=== PATIENT | male | born 1940 | race Caucasian/White ===

== ENCOUNTER 2017-09-29 00:41 | Inpatient (IN) | payer MEDICARE ==
[2017-09-28 15:30] LABS: INR 1.13
[~2017-09-29] VITALS: Ht 175.3 cm; Wt 63.5 kg
[2017-09-29] VITALS (12 sets, daily range): BP systolic 35–141; BP diastolic 29–72
[~2017-09-29 00:41] MED LIST: ALLO100T70 PO; AMLO-96 PO; ASPI-1471 PO; ATOR20TA22 PO; ENAL-18 PO; ERGO500037 PO; FAMO-67 PO; GLIP-154 PO; METO50TA19 PO; OMEG-23 PO; QUET50TA PO; TAMS0.4C70 PO
[2017-09-29] MEDS ORDERED: PREGABALIN 75 MG CAPSULE PO ONE (10:00)
[2017-09-29] MEDS ORDERED: ceFAZolin(*) 2GM/D5W 50ML 50 ML IVPB ONE (10:00)
[2017-09-29] MEDS ORDERED: NORMOSOL R SOLN(*) 1000 ML BAG 1,000 ML IV PRN (10:00)
[2017-09-29] MEDS ORDERED: MIDAZOLAM 2 MG/2 ML VIAL IVP PRN (10:00)
[2017-09-29] MEDS ORDERED: BACITRACIN 50000 UNIT/VIAL 100,000 UNIT in NS 0.9% 3000 ML IRRIGATION BAG 3,000 ML IR ONE (10:00)
[2017-09-29] MEDS ORDERED: ACETAMINOPHEN 500 MG TAB PO ONE (10:00)
[2017-09-29] MEDS ORDERED: CELECOXIB 200 MG CAP PO ONE (10:00)
[2017-09-29] MEDS ORDERED: LIDOCAINE/SOD BICARB 8.4% SYR ID ONE (10:00)
[2017-09-29] MEDS ORDERED: ONDANSETRON 4 MG/2 ML VIAL ONE (10:08)
[2017-09-29] MEDS ORDERED: PROPOFOL EMUL(*) 10MG/ML 20 ML 20 ML ONE (10:08)
[2017-09-29] MEDS ORDERED: DEXAMETHASONE SOD 4 MG/ML VIAL ONE (10:08)
[2017-09-29] MEDS ORDERED: LIDOCAINE MPF 1% 5 ML VIAL ONE (10:08)
[2017-09-29] MEDS ORDERED: fentaNYL CITR 250 MCG/5 ML AMP ONE (10:13)
[2017-09-29] MEDS ORDERED: ROCURONIUM BROM 10 MG/ML 10 ML ONE (10:24)
[2017-09-29] MEDS ORDERED: ROPIVACAINE 0.2% 20 ML VIAL ONE (11:02)
[2017-09-29] MEDS ORDERED: LIDO/EPI 2% MPF 1:200,000 20ML ONE (11:03)
[2017-09-29] MEDS ORDERED: cloNIDine EPIDUR INJ 100MCG/ML 40 MCG, ROPIVACAINE 0.5% 20 ML VIAL 25 ML, EPINEPHrine H... INJ ONE (12:15)
[2017-09-29] MEDS ORDERED: VANCOMYCIN(*) 1 GM VIAL 1 GM in NS(*) 0.9% 250 ML BAG 250 ML IVPB ONE (12:15)
[2017-09-29] MEDS ORDERED: ePHEDrine 25 MG/5 ML DISP.SYR IVP ONE (12:47)
[2017-09-29] MEDS ORDERED: PHENYLEPHRINE/NS/PF 0.4MG/10ML ONE (12:52)
[2017-09-29] MEDS ORDERED: SUGAMMADEX SOD 200 MG/2 ML SDV ONE (14:28)
[2017-09-29] MEDS ORDERED: diphenhydrAMINE 50 MG/ML VIAL IVP PRN (15:15)
[2017-09-29] MEDS ORDERED: diphenhydrAMINE 25 MG CAP PO PRN (15:15)
[2017-09-29] MEDS ORDERED: LR 1000 ML BAG 1000 ML IV PRN (15:15)
[2017-09-29] MEDS ORDERED: ZOLPIDEM TARTRATE 5 MG TAB PO PRN (15:15)
[2017-09-29] MEDS ORDERED: BISACODYL 10 MG SUPP PR PRN (15:15)
[2017-09-29] MEDS ORDERED: ONDANSETRON 4 MG/2 ML VIAL IVP PRN (15:15)
[2017-09-29] MEDS ORDERED: MAGNESIUM CITRATE 300 ML BTL PO PRN (15:15)
[2017-09-29] MEDS ORDERED: HYDROmorphone HCL 2 MG/ML SDV IVP PRN (15:15)
[2017-09-29] MEDS ORDERED: MAGNESIUM HYDROXIDE* 30ML UDCP PO PRN (15:15)
[2017-09-29] MEDS ORDERED: PROMETHAZINE 25 MG/ML 1 ML AMP IVP PRN (15:15)
[2017-09-29] MEDS ORDERED: FLUSH 10 ML SYR IVP PRN (15:15)
--- NOTE | 2017-09-29 15:39 | RADIOLOGY IMAGING REPORT ---
FACILITY: [facility] PATIENT NAME: Guillermo Bauer : 1940 MR: [id number] V: [id number] EXAM DATE: ORDERING PHYSICIAN: CM DIAZ TECHNOLOGIST: Location: [facility] Patient: Guillermo Bauer : 1940 Visit/Account:[id number] Date of Sevice: 09/29/2017 Exam type: SHOULDER 1 VIEW LEFT History: POST OP L TSA Comparison: None. Findings: The left shoulder arthroplasty that appears in good anatomic alignment on this single AP view. Insta ntly noted are moderate degenerative changes of the left AC joint and sternotomy sutures IMPRESSION: 1. Left shoulder arthroplasty appears in good anatomic alignment on this single AP view Report Dictated By: Mary Mann MD at 09/29/2017 3:33 PM Report E-Signed By: Mary Mann MD at 09/29/2017 3:35 PM WSN:[email or web address]
--- NOTE | 2017-09-29 16:48 | OPERATIVE REPORT 1 ---
EVENT DATE: September 29, 2017 SURGEON: Spencer Walker MD ANESTHESIOLOGIST: Guillermo Tadeo MD ANESTHESIA: General LMA anesthesia. FOOD PRODUCTION MANAGER: MIKE Gonzalez PREOPERATIVE DIAGNOSIS Left shoulder osteoarthritis. POSTOPERATIVE DIAGNOSIS Left shoulder osteoarthritis. PROCEDURE PERFORMED Left total shoulder arthroplasty. FINDINGS The patient had a significant amount of arthritic changes associated with his shoulder, but was amenable for total shoulder replacement. ESTIMATED BLOOD LOSS About 200 mL. DRAINS None. COMPLICATIONS None. TOURNIQUET TIME Not applicable. IMPLANTS USED [employer] Unite system size 52 [place] Peg Glenoid with an 8 stem, an 8 proximal body, and a 52 x 18 standard head. SPECIMENS None. 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 He has then has subsequently developed arthritis in the left shoulder, and so therefore, he wanted to go ahead with a total shoulder arthroplasty in the near future on that. I talked to him about the implications of this given the fact that he has no legs, and he uses his arms for ambulation and transfer, how it may wear out the total shoulder. Also, we talked extensively about his infections associated with his legs and how this can result in catastrophic problems associated with his shoulder also. He said he understood all these and understood that it may not give him complete relief and that he may need further surgeries associated with this, and after informed consent was obtained, we got him set up to do that today, September 29, 2017. DESCRIPTION OF PROCEDURE As the patient was brought in the operating room, he and the procedure were both verified. He was placed supine on the operating table and induced and intubated by Anesthesia. He was then put in a beach chair position with the left arm out over the edge. Then, the left arm was prepped and draped in the usual fashion. A timeout was observed verifying the correct patient and procedure. The standard incision was made over the anterior aspect of the shoulder after the incision was insufflated with 2% lidocaine with epinephrine. I then took the incision through the skin and subcutaneous tissue and then was able to go down to the deltopectoral interval. I was then able to split the deltopectoral interval. Unfortunately, during dislocation of the shoulder, the cephalic vein did rupture and so therefore needed to be tied off. I then was able to get down to the clavipectoral fascia, and then I was able to identify the biceps tendon. I performed a biceps tenodesis in this area with a tag stitch. This was then followed by peel back of the subscapularis in order to make it amenable to repair later on and then get into the shoulder joint itself, which I tagged for later repair. Once in the shoulder joint, I was then able to drill a vargas hole into the superior aspect of the humeral head after dislocating the shoulder. I then was able to broach and ream down into the central canal. We put the 6 mm reamer in , and it had a good fit, and so therefore, an 8 was chosen. I then utilized the cutting guide from the [employer] system in order cut the humeral head. After cutting the humeral head, I was then able to remove all the osteophytes 360 degrees around the humeral head itself and then turned attention to the glenoid. Once on the glenoid, I was able to put a retractor posteriorly and anteriorly, removed the labrum, and then what was left of the biceps anchor. This was then followed by drilling a central pilot submersible hole and then reaming the glenoid to a 52 mm socket size. I then drilled the subsequent cementation holes and the rotational holes and then put in the trial and then cemented in the final 52 [place] Peg Glenoid. Once the cement had hardened, I then turned attention back to the humerus where I was able to take the #8 Brosteotome, followed by bone grafting and then placement of an 8 broach into the humerus itself. I then trialed the 52 x 18 head. This had excellent fit, and so therefore this was the final prosthesis chosen, and it was assembled on the back table. I then removed the prosthesis, impacted bone grafting in the canal. This was then followed by passage of six sutures through the anterior aspect of what was left of the humeral head in order to repair the subscapularis. I then put in the final prosthesis, relocated it, put it through a range of motion. There were no signs of problems or issues. It had good tension associated with it, and so therefore the subscapularis was closed using those six sutures and then one more through the interval. I then irrigated with copious amounts of saline which I had throughout the case using a pulsatile lavage and then closed the deltopectoral interval with an 0 Stratafix, then followed by 2-0 Stratafix in the subcutaneous tissue, and a subcuticular running 4-0 Monocryl. This was then dressed with Steri-Strips, gauze 4 x 4's, and a soft dressing. The patient was put in a regular sling and then awakened, extubated, and transferred to PACU in stable condition. SLY
--- NOTE | 2017-09-29 17:11 | Hospitalist Consultation ---
History of Present Illness Requesting Physician Dr. Walker Reason for Consult Medical Management Chief Complaint s/p left shoulder replacement History of Present Illness He was admitted s/p left shoulder replacement. It is reported the surgery went well and without complication. 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 History Problems: (1) CAD (coronary artery disease) Status: Chronic (2) Depression Status: Chronic (3) Hyperlipidemia Status: Chronic (4) Hypertension Status: Chronic (5) JONAH (obstructive sleep apnea) Status: Chronic (6) Type 2 diabetes mellitus Status: Chronic Home Meds Reported Medications Ergocalciferol (Vitamin D2) (VITAMIN D2) 50,000 Unit Capsule, 69866 UNIT PO 2XW , CAPSULE PT TAKE ONE ON THURSDAY AND ONE ON Thursday09/22/17 Aspirin (ASPIR 81) 81 Mg Tablet.dr, 81 MG PO QDAY, TAB 09/22/17 [place]-3 Fatty Acids/Fish Oil (FISH OIL 1,000 MG SOFTGEL) 1 Each Capsule, 1 EACH PO BID, CAPSULE TAKE 3 CAPS IN THE MORNING AND 2 CAPS AT NIGHT 09/22/17 Quetiapine Fumarate (QUETIAPINE FUMARATE) 50 Mg Tablet, 50 MG PO HS 09/22/17 Famotidine (FAMOTIDINE) 20 Mg Tablet, 20 MG PO BID, TAB TAKE ONE TAB TWICE A DAY 30 MINS BEFORE A MEAL. 09/22/17 Amlodipine Besylate (AMLODIPINE BESYLATE) 5 Mg Tablet, 1 TAB PO QDAY, TAB 09/22/17 Metoprolol Succinate (METOPROLOL SUCCINATE) 50 Mg Tab.er.24h, 1 TAB PO BID, TAB 09/22/17 Allopurinol (ALLOPURINOL) 100 Mg Tablet, 100 MG PO DAILY, #10 TAB 09/22/17 Glipizide (GLIPIZIDE) 10 Mg Tablet, 20 MG PO BIDBS 09/22/17 Enalapril Maleate (ENALAPRIL MALEATE) 10 Mg Tablet, 10 MG PO QDAY 09/22/17 Atorvastatin Calcium (LIPITOR) 20 Mg Tablet, 1 TAB PO HS, TAB 09/22/17 Tamsulosin Hcl (TAMSULOSIN HCL) 0.4 Mg Cap.er.24h, 0.4 MG PO DAILY, CAP 09/22/17 Allergies: Coded Allergies: No Known Drug Allergies (Unverified , 09/22/17) Patient History: FHx: cancer FATHER MOTHER Hx Smoking: No Exposure to Second Hand Smoke?: No Hx Alcohol Use: No Hx Substance Use Disorder: No Review of Systems All Systems Reviewed/Normal: Yes, Except as Noted Exam Vital Signs Vital Signs Date Time Temp Pulse Resp B/P (MAP) Pulse Ox O2 Delivery O2 Flow Rate FiO2 09/29/17 15:50 90 14 91 09/29/17 10:45 97.6 141/71 (94) Room Air General Appearance: Alert, Awake, No Acute Distress, Afebrile Neuro: No Gross deficits Cardiovascular: Regular Rate and Rhythm Respiratory: No Respiratory Distress, Clear to Auscultation Psych: Alert & Oriented X3, Appropriate Mood & Affect Medical Decision Making Data Points Result Diagram: 09/29/17 7302 Assessment and Plan Problems: (1) Status post replacement of left shoulder joint Status: Acute Assessment & Plan: Followed by Dr. Walker. He will be placed on Vancomycin 1 gm daily secondary to chronic kidney disease. He will also be placed on Aspirin for DVT prophylaxis. (2) Type 2 diabetes mellitus Status: Chronic Assessment & Plan: He is on chronic treatment with Glipizide. He will be placed on SSI #2 and ADA diet. (3) Hypertension Status: Chronic Assessment & Plan: He is on chronic treatment with Metoprolol, Amlodipine and Enalapril. These medications have been restarted with hold parameters. (4) Hyperlipidemia Status: Chronic Assessment & Plan: He is on chronic treatment with Atorvastatin. (5) JONAH (obstructive sleep apnea) Status: Chronic Assessment & Plan: He did bring his CPAP machine to use [employer]. (6) CAD (coronary artery disease) Status: Chronic Assessment & Plan: He has a history of [place] with coronary bypass. (7) Depression Status: Chronic Assessment & Plan: He is on chronic treatment with quetiapine. (8) CKD (chronic kidney disease) Status: Chronic Assessment & Plan: Creatinine prior to surgery was 1.8. Today 2.1. Renally dosed Vancomycin. Venous Thromboembolism Antithrombotics Is Pt On Any Antithrombotics?: No Problem Qualifiers (1) CKD (chronic kidney disease): Chronic kidney disease stage: stage 3 (moderate) Qualified Codes: N18.3 - Chronic kidney disease, stage 3 (moderate) GABBY DUNHAM HOME HEALTH CARE PHYSICIAN Sep 29, 2017 17:11
[2017-09-29] MEDS ORDERED: BENZOCAINE/MENTHOL 1 EACH LOZG PO PRN (18:55)
[2017-09-29] MEDS ORDERED: VANCOMYCIN(*) 1 GM VIAL 1 GM in NS(*) 0.9% 250 ML ADDVAN BAG 250 ML IVPB SCH (20:00)
[2017-09-29] MEDS: INSULIN HUM LISPRO 100 UN/ML 3 ML VIAL SUBQ PRN (20:30)
[2017-09-29] MEDS: FAMOTIDINE 20 MG TAB PO SCH (20:56)
[2017-09-29] MEDS: ASPIRIN 325 MG TAB PO SCH (20:56)
[2017-09-29] MEDS: ATORVASTATIN 40 MG TAB PO SCH (20:56)
[2017-09-29] MEDS: QUEtiapine FUM 25 MG TAB PO SCH (20:56)
[2017-09-29] MEDS: METOPROLOL SUCC XL 50 MG TABCR 50 MG TAB.ER.24H PO SCH (20:57)
[2017-09-30] VITALS (9 sets, daily range): BP systolic 98–129; BP diastolic 53–63
[2017-09-30] MEDS: FAMOTIDINE 20 MG TAB PO SCH ×2 (07:13→16:34)
[2017-09-30] MEDS: glipiZIDE 5 MG TAB PO SCH ×2 (07:28→16:34)
[2017-09-30] MEDS: TAMSULOSIN HCL 0.4 MG CAP PO SCH (08:16)
[2017-09-30] MEDS: ALLOPURINOL 100 MG TAB PO SCH (08:16)
[2017-09-30] MEDS: amLODIPine BESYL(*) 5 MG TAB PO SCH (08:16)
[2017-09-30] MEDS: NS(*) 0.9% 1000 ML BAG 1,000 ML IV PRN (08:16)
[2017-09-30] MEDS: METOPROLOL SUCC XL 50 MG TABCR 50 MG TAB.ER.24H PO SCH ×2 (08:17→20:57)
[2017-09-30] MEDS: ENALAPRIL MALEATE 10 MG TAB PO SCH (08:17)
--- NOTE | 2017-09-30 09:25 | Hospitalist Progress Note ---
Subjective Progress Notes Subjective He has no concerns this morning. He had no acute events overnight. Patient Complains of: Cardiovascular: No: Chest Pain Respiratory: No: Shortness of Breath Physical Exam Vital Signs Date Time Temp Pulse Resp B/P (MAP) Pulse Ox O2 Delivery O2 Flow Rate FiO2 09/30/17 07:31 91 Nasal Cannula 3.0 09/30/17 07:22 97.6 85 16 125/59 (81) Intake and Output 10/01/17 07:00 Intake Total 480 ml Balance 480 ml Intake Oral 480 ml General Appearance: Alert, Awake, No Acute Distress, Afebrile Neuro: No Gross deficits Cardiovascular: Regular Rate and Rhythm Respiratory: No Respiratory Distress, Clear to Auscultation Psych: Alert & Oriented X3, Appropriate Mood & Affect Result Diagram: 09/30/17 0537 09/29/17 1618 Assessment and Plan Problems: (1) Status post replacement of left shoulder joint Status: Acute Assessment & Plan: Followed by Dr. Walker. He will be placed on Vancomycin 1 gm daily secondary to chronic kidney disease. He will also be placed on Aspirin for DVT prophylaxis. (2) Type 2 diabetes mellitus Status: Chronic Assessment & Plan: He is on chronic treatment with Glipizide. He will be placed on SSI #2 and ADA diet. (3) Hypertension Status: Chronic Assessment & Plan: He is on chronic treatment with Metoprolol, Amlodipine and Enalapril. These medications have been restarted with hold parameters. (4) Hyperlipidemia Status: Chronic Assessment & Plan: He is on chronic treatment with Atorvastatin. (5) JONAH (obstructive sleep apnea) Status: Chronic Assessment & Plan: He did bring his CPAP machine to use [employer]. (6) CAD (coronary artery disease) Status: Chronic Assessment & Plan: He has a history of [place] with coronary bypass. (7) Depression Status: Chronic Assessment & Plan: He is on chronic treatment with quetiapine. (8) CKD (chronic kidney disease) Status: Chronic Assessment & Plan: Creatinine prior to surgery was 1.8. Today 2.1. Renally dosed Vancomycin. Exam Sepsis Risk: No Definite Risk Problem Qualifiers (1) CKD (chronic kidney disease): Chronic kidney disease stage: stage 3 (moderate) Qualified Codes: N18.3 - Chronic kidney disease, stage 3 (moderate) GABBY DUNHAM [facility] Sep 30, 2017 09:25
[2017-09-30] MEDS: INSULIN HUM LISPRO 100 UN/ML 3 ML VIAL SUBQ PRN (11:46)
[2017-09-30] MEDS ORDERED: VANCOMYCIN(*) 1 GM VIAL 1 GM in NS(*) 0.9% 250 ML ADDVAN BAG 250 ML IVPB SCH (12:15)
--- NOTE | 2017-09-30 15:29 | Medical Nutrition Therapy ---
Nutrition Anthropometrics Height (Inches): 69.00 Height (Calculated Centimeters: 175.093510 Weight (Pounds): 140 Weight (Calculated Kilograms): 63.503 Juno Nutrition Score: Adequate Juno Nutrition Risk Score: 16 Dietary Referral Nutrition Risk Factors: Nutrition Risk Comment: Physical Findings Physical Appearance: BMI 20 WNR Skin Appearance Skin Appearance: Edema Edema Location Modifier: Edema Location: Type of Edema: Degree of Edema: Gastrointestinal Symptoms GI Symtoms: Tube Present: Bowel Sounds: Recent Bowel Pattern: Stool Characteristics: Nutritional Diagnosis Nutritional Risk Acuity 2: Chronic Renal Failure Nutritional Risk Acuity 4: Good Appetite Past Medical History: Hx MRSA, bilateral LE amputee, Chronic kidney disease, CAD, depression, hyperlipidemia, HTN, JONAH, T2DM, left shoulder replacement Nutritional Acuity: 2-Moderate Nutrition Diagnosis: Increased Nutrient Needs Nutrition Etiology: Physiological Causes Nutrition Problem/Etiology/Sym: Inncrease nutrient needs related to physiological causes as evidence by left shoulder replacement. Energy Requirement: 1771 ([place]) Protein Requirement: 50 (.8g/kg) Fluid Requirement: 1771 (1ml/kcal) Diet Type: Diabetic Nutritional Education Nutrition Education Topic: Diabetic Nutrition Learning Readiness: Interested Teaching Methods: Discussion, Handout Response to Teaching: Verbalize understanding Teaching Recipient: Patient Nutrition Counseling: Spoke with pt about ADA diet. Pt does not follow a ADA at home, nor does he check blood sugar or is on any medication. Pt was interested in learning about ADA diet. Pt has some background about the importance of CHO quality and quantity, but does not want to count everything out when he is eating. Recommended that MyPlate approach would best fit his life style. Focusing on whole foods, fruits and vegetables, and using 1/4 of his plate for a serving size of CHO. Pt agreed to try that approach. Provided the pt with two different handouts. Pt accepted the handouts and was appreciative. Nutrition Monitoring & Eval Nutrition Goals: Eat 75-100% Meal RD Patient Assessment Time: [address] Assessment Type: RD Assessment Patient Nutrition Acuity: 2-Moderate Follow Up Date: Oct 04, 2017 Nutritional Comment: 09/29 Pt admitted for left shoulder replacement. Surgery went well. Pt is on ADA diet with 100% oral intake. Pt has a hx of infection from previous surgery. Pt has a bilateral LE amputation. Abnormal labs from yesterday had shown elevated whole blood glucose (292), creatinine (1.2) and BUN (32). are watching creatinine level. Spoke with pt about diabetic nutrition education. Pt was interested in learning and accepted the handouts given to him. Will continue to monitor pt progress and encourage intake. -ANGIE THOMAS 13, 2018 09:30
[2017-09-30] MEDS: ATORVASTATIN 40 MG TAB PO SCH (20:57)
[2017-09-30] MEDS: ASPIRIN 325 MG TAB PO SCH (20:57)
[2017-09-30] MEDS: QUEtiapine FUM 25 MG TAB PO SCH (20:57)
[2017-10-01] MEDS: NS(*) 0.9% 1000 ML BAG 1,000 ML IV PRN ×2 (03:15→19:58)
[2017-10-01 03:16] VITALS: BP 115/61
[2017-10-01 07:39] VITALS: BP 119/62
[2017-10-01] MEDS: FAMOTIDINE 20 MG TAB PO SCH ×2 (07:49→16:40)
--- NOTE | 2017-10-01 08:28 | Hospitalist Progress Note ---
Subjective Progress Notes Subjective He has no concerns this morning. He had no acute events overnight. Patient Complains of: Cardiovascular: No: Chest Pain Respiratory: No: Shortness of Breath Physical Exam Vital Signs Date Time Temp Pulse Resp B/P (MAP) Pulse Ox O2 Delivery O2 Flow Rate FiO2 10/01/17 07:39 98.4 77 14 119/62 (81) 94 Oxy Mask 5.0 Intake and Output 10/02/17 07:00 Intake Total 250 ml Output Total 950 ml Balance -700 ml Intake Oral 250 ml Output Urine Total 950 ml General Appearance: Alert, Awake, No Acute Distress, Afebrile Neuro: No Gross deficits Cardiovascular: Regular Rate and Rhythm Respiratory: No Respiratory Distress, Clear to Auscultation Psych: Alert & Oriented X3, Appropriate Mood & Affect Result Diagram: 10/01/17 0601 09/30/17 1107 Assessment and Plan Problems: (1) Status post replacement of left shoulder joint Status: Acute Assessment & Plan: Followed by Dr. Walker. He will be placed on Vancomycin 1 gm daily secondary to chronic kidney disease. He will also be placed on Aspirin for DVT prophylaxis. (2) Type 2 diabetes mellitus Status: Chronic Assessment & Plan: He is on chronic treatment with Glipizide. He will be placed on SSI #2 and ADA diet. (3) Hypertension Status: Chronic Assessment & Plan: He is on chronic treatment with Metoprolol, Amlodipine and Enalapril. These medications have been restarted with hold parameters. (4) Hyperlipidemia Status: Chronic Assessment & Plan: He is on chronic treatment with Atorvastatin. (5) JONAH (obstructive sleep apnea) Status: Chronic Assessment & Plan: He did bring his CPAP machine to use tonight. (6) CAD (coronary artery disease) Status: Chronic Assessment & Plan: He has a history of [place] with coronary bypass. (7) Depression Status: Chronic Assessment & Plan: He is on chronic treatment with quetiapine. (8) CKD (chronic kidney disease) Status: Chronic Assessment & Plan: Creatinine prior to surgery was 1.8. Today 2.1. Renally dosed Vancomycin. Exam Sepsis Risk: No Definite Risk Problem Qualifiers (1) CKD (chronic kidney disease): Chronic kidney disease stage: stage 3 (moderate) Qualified Codes: N18.3 - Chronic kidney disease, stage 3 (moderate) GABBY DUNHAM [facility] Oct 01, 2017 08:27
[2017-10-01] MEDS: amLODIPine BESYL(*) 5 MG TAB PO SCH (09:26)
[2017-10-01] MEDS: ENALAPRIL MALEATE 10 MG TAB PO SCH (09:27)
[2017-10-01] MEDS: METOPROLOL SUCC XL 50 MG TABCR 50 MG TAB.ER.24H PO SCH ×2 (09:27→20:39)
[2017-10-01] MEDS: glipiZIDE 5 MG TAB PO SCH ×2 (09:28→16:41)
[2017-10-01] MEDS: ALLOPURINOL 100 MG TAB PO SCH (09:28)
[2017-10-01] MEDS: TAMSULOSIN HCL 0.4 MG CAP PO SCH (09:28)
[2017-10-01 10:54] VITALS: BP 123/69
[2017-10-01] MEDS ORDERED: VANCOMYCIN(*) 1 GM VIAL 1 GM, VANCOMYCIN (*) 0.5 GM VIAL 0.25 GM in NS(*) 0.9% 250 ML B... IVPB SCH (12:30)
[2017-10-01 14:52] VITALS: BP 149/65
[2017-10-01 19:24] VITALS: BP 136/55
[2017-10-01] MEDS: ASPIRIN 325 MG TAB PO SCH (20:40)
[2017-10-01] MEDS: ATORVASTATIN 40 MG TAB PO SCH (20:40)
[2017-10-01] MEDS: QUEtiapine FUM 25 MG TAB PO SCH (20:40)
[2017-10-01 23:56] VITALS: BP 106/49
[2017-10-02 04:49] VITALS: BP 104/54
[2017-10-02 08:08] VITALS: BP 101/56
[2017-10-02] MEDS ORDERED: VANCOMYCIN(*) 1 GM VIAL 1 GM, VANCOMYCIN (*) 0.5 GM VIAL 0.25 GM in NS(*) 0.9% 250 ML B... IVPB ONE (08:35)
[2017-10-02] MEDS ORDERED: NS(*) 0.9% 250 ML BAG 250 ML ONE (08:37)
[2017-10-02] MEDS: ENALAPRIL MALEATE 10 MG TAB PO SCH (09:00)
[2017-10-02] MEDS: METOPROLOL SUCC XL 50 MG TABCR 50 MG TAB.ER.24H PO SCH (09:00)
[2017-10-02] MEDS: amLODIPine BESYL(*) 5 MG TAB PO SCH (09:00)
[2017-10-02] MEDS: TAMSULOSIN HCL 0.4 MG CAP PO SCH (09:03)
[2017-10-02] MEDS: FAMOTIDINE 20 MG TAB PO SCH (09:04)
[2017-10-02] MEDS: glipiZIDE 5 MG TAB PO SCH (09:05)
[2017-10-02] MEDS: ALLOPURINOL 100 MG TAB PO SCH (09:06)
--- NOTE | 2017-10-02 09:12 | RADIOLOGY IMAGING REPORT ---
FACILITY: PATIENT NAME: Guillermo Bauer : 1940 MR: [id number] V: [id number] EXAM DATE: ORDERING PHYSICIAN: GABBY DUNHAM TECHNOLOGIST: Location: [facility] Patient: Guillermo Bauer : 1940 Visit/Account:[id number] Date of Sevice: 10/02/2017 VENOUS DOPP UPPER LEFT EXTREMI HISTORY: Left arm swelling after surgery. COMPARISON: None. FINDINGS: Grayscale compression, duplex and color Doppler interrogation of the left upper extremity veins was p erformed. Jugular vein - Negative. Subclavian vein - Negative. Axillary vein - Negative. Basilic vein - Negative. Cephalic vein - Negative. Brachial veins - Negative. Other: Mild subcutaneous edema. IMPRESSION: No DVT. Report Dictated By: Rodrigo Mcbride MD at 10/02/2017 9:05 AM Report E-Signed By: Rodrigo Mcbride MD at 10/02/2017 9:07 AM WSN:[email or web address]
[2017-10-02] MEDS ORDERED: ASPI-757 PO (09:24)
--- NOTE | 2017-10-02 09:28 | Hospitalist Progress Note ---
Subjective Progress Notes Subjective He has no complaints this morning. He had no acute events overnight. Patient Complains of: Cardiovascular: No: Chest Pain Respiratory: No: Shortness of Breath Musculoskeletal: Other (swelling to left arm) Physical Exam Vital Signs Date Time Temp Pulse Resp B/P (MAP) Pulse Ox O2 Delivery O2 Flow Rate FiO2 10/02/17 08:08 98.4 69 18 101/56 (71) 89 Nasal Cannula 4.0 General Appearance: Alert, Awake, No Acute Distress, Afebrile Neuro: No Gross deficits Cardiovascular: Regular Rate and Rhythm Respiratory: No Respiratory Distress, Clear to Auscultation GI: Soft and Non-Tender Musculoskeletal: Other (left arm tight to the touch, swelling to mid forearm) Extremities: Warm, Perfused, Edema (left arm ) Psych: Alert & Oriented X3, Appropriate Mood & Affect Result Diagram: 10/02/17 0524 10/01/17 1100 Assessment and Plan Problems: (1) Status post replacement of left shoulder joint Status: Acute Assessment & Plan: Followed by Dr. Walker. He was placed on Vancomycin daily secondary to chronic kidney disease for three days. He will also be placed on Aspirin for DVT prophylaxis for 30 days. Ultrasound performed this morning to rule out DVT to left arm was negative. (2) Type 2 diabetes mellitus Status: Chronic Assessment & Plan: He is on chronic treatment with Glipizide. (3) Hypertension Status: Chronic Assessment & Plan: He is on chronic treatment with Metoprolol, Amlodipine and Enalapril. These medications have been restarted with hold parameters. (4) Hyperlipidemia Status: Chronic Assessment & Plan: He is on chronic treatment with Atorvastatin. (5) JONAH (obstructive sleep apnea) Status: Chronic Assessment & Plan: He is on chronic treatment with CPAP. (6) CAD (coronary artery disease) Status: Chronic Assessment & Plan: He has a history of [place] with coronary bypass. (7) Depression Status: Chronic Assessment & Plan: He is on chronic treatment with quetiapine. (8) CKD (chronic kidney disease) Status: Chronic Assessment & Plan: Creatinine prior to surgery was 1.8. Renally dosed Vancomycin. Exam Sepsis Risk: No Definite Risk Problem Qualifiers (1) CKD (chronic kidney disease): Chronic kidney disease stage: stage 3 (moderate) Qualified Codes: N18.3 - Chronic kidney disease, stage 3 (moderate) GABBY DUNHAM [facility] Oct 02, 2017 09:28
[2017-10-02] MEDS ORDERED: OXYC-865 PO (09:41)
[2017-10-02] MEDS ORDERED: CEPH500T7 PO (10:29)
== END 2017-10-02 11:30 | DRG 483 ==
LOC: OR 00:41 → MED 15:50
PROVIDERS: ADMIT Orthopaedic Surgery; ATTEND Orthopaedic Surgery
PROC: 0RRK0JZ Replacement of Left Shoulder Joint with Synthetic Substitute, Open Approach (ICD-10-PCS; principal; 2017-09-29 12:26)
DX: M19.012 Primary osteoarthritis, left shoulder (principal); I25.10 Atherosclerotic heart disease of native coronary artery without angina pectoris; F32.9 Major depressive disorder, single episode, unspecified; E78.5 Hyperlipidemia, unspecified; G47.33 Obstructive sleep apnea (adult) (pediatric); E11.22 Type 2 diabetes mellitus with diabetic chronic kidney disease; I12.9 Hypertensive chronic kidney disease with stage 1 through stage 4 chronic kidney disease, or unspecified chronic kidney disease; N18.3 Chronic kidney disease, stage 3 (moderate); L40.9 Psoriasis, unspecified; K21.9 Gastro-esophageal reflux disease without esophagitis; Z79.84 Long term (current) use of oral hypoglycemic drugs; Z86.14 Personal history of Methicillin resistant Staphylococcus aureus infection; I25.2 Old myocardial infarction; Z99.81 Dependence on supplemental oxygen; Z89.612 Acquired absence of left leg above knee; Z89.611 Acquired absence of right leg above knee
CPT/HCPCS: 36415; 36416; 80202; 82310; 82374; 82435; 82565; 82947; 82948; 84132; 84295; 84520; 85014; 85018; 85610; 86850; 86900; 86901; 97165; A4565; C1713; C1776; J0171; J0735; J1100; J1885; J2001; J2250; J2370; J2405; J2704; J2795; J3010; J3370; J7030; J7050